=== PATIENT | male | born 1940 | race Caucasian/White ===

== ENCOUNTER 2021-01-18 17:46 | Emergency (ER) | payer MEDICARE, OTHER ==
[~2021-01-18] VITALS: Ht 160 cm; Wt 90.3 kg
[~2021-01-18 17:46] MED LIST: ALBUTEROL2.5 MG/3 M INH; AMOX TR-K CLV1 EAC1 PO; AZITHROMYCIN500 MG PO; BENZONATATE100 MG PO; BUPROPION HCL150 M2 PO; CARBIDOPA-LEVO1 EAC2 PO; CEFPODOXIME PR200 MG PO; FLOMAX0.4 MG PO; GLUCOSAMINE &1 EAC1 PO; IBUPROFEN600 MG PO; IPRAT-ALBUT 0.5-3 ML INH; MAPAP325 MG PO; OXYBUTYNIN CHLOR5 MG PO; OXYCODON-ACETA1 EAC2 PO; ROPINIROLE HCL3 MG PO; ROPINIROLE HCL5 MG PO; TERBINAFINE15 GM TOP; VITAMIN B122500 MCG PO; VITAMIN D31000 UNI1 PO
[2021-01-18] MEDS ORDERED: MONTELUKAST SOD10 MG PO (19:48)
[2021-01-18] MEDS ORDERED: CARBIDOPA-LEVO1 EAC1 PO (19:48)
[2021-01-18] MEDS ORDERED: TAMSULOSIN HCL0.4 MG PO (19:49)
[2021-01-18] MEDS ORDERED: BACLOFEN20 MG PO (19:49)
[2021-01-18] MEDS ORDERED: HYDROCODON-ACE1 EA10 PO (23:23)
== END 2021-01-18 23:36 | disposition home or self-care (01) ==
LOC: ED 17:46
DX: S27.1XXA Traumatic hemothorax, initial encounter (principal); S22.42XA Multiple fractures of ribs, left side, initial encounter for closed fracture; W01.198A Fall on same level from slipping, tripping and stumbling with subsequent striking against other object, initial encounter; G20 Parkinson's disease; J44.9 Chronic obstructive pulmonary disease, unspecified; G47.30 Sleep apnea, unspecified; Z87.891 Personal history of nicotine dependence; Z88.2 Allergy status to sulfonamides; Z79.899 Other long term (current) drug therapy
CPT/HCPCS: 71101; 71260; 74177; 80053; 81001; 85025; 99284-25; Q9967

== ENCOUNTER 2021-06-01 12:34 | Emergency (ER) | payer MEDICARE, OTHER ==
[~2021-06-01] VITALS: Ht 160 cm; Wt 90.3 kg
[~2021-06-01 12:34] MED LIST changes: +BACLOFEN20 MG PO; +CARBIDOPA-LEVO1 EAC1 PO; +HYDROCODON-ACE1 EA10 PO; +MONTELUKAST SOD10 MG PO; +TAMSULOSIN HCL0.4 MG PO
[2021-06-01] MEDS ORDERED: TOPROL XL25 MG PO (16:22)
--- NOTE | 2021-06-01 16:58 | EKG ---
[facility] [address] [place], [place] [address] Signed Atrial fibrillation Abnormal ECG When compared with ECG of 04-JUN-2018 09:29, Atrial fibrillation has replaced Sinus rhythm Confirmed by STEF BLANCO DO ([id number]) on 06/01/2021 4:58:19 PM Electronically Signed By: STEF BLANCO DO 06/01/21 1658 PATIENT NAME: DAKOTA LANGFORD Electrocardiogram DATE OF : 44 PHYSICIAN: STEF BLANCO DO REPORT #: [id number] REPORT IS CONFIDENTIAL AND NOT TO BE RELEASED WITHOUT AUTHORIZATION
== END 2021-06-01 17:08 | disposition home or self-care (01) ==
LOC: ED 12:34
DX: I48.91 Unspecified atrial fibrillation (principal); J44.9 Chronic obstructive pulmonary disease, unspecified; Z87.891 Personal history of nicotine dependence; Z88.2 Allergy status to sulfonamides; Z20.822 Contact with and (suspected) exposure to COVID-19
CPT/HCPCS: 80053; 83735; 84484; 85025; 93005; 93010; 99284-25; C9803; U0003

== ENCOUNTER 2021-11-03 11:17 | Emergency (ER) | payer MEDICARE, OTHER ==
[~2021-11-03] VITALS: Ht 172.7 cm; Wt 90.3 kg
[~2021-11-03 11:17] MED LIST changes: +TOPROL XL25 MG PO
[2021-11-03] MEDS ORDERED: DIGOXIN125 MCG PO (12:13)
[2021-11-03] MEDS ORDERED: AZITHROMYCIN500 MG PO (14:06)
[2021-11-03] MEDS ORDERED: MILLIPRED DP5 MG PO (14:06)
== END 2021-11-03 14:31 | disposition home or self-care (01) ==
LOC: ED 11:17
DX: J44.1 Chronic obstructive pulmonary disease with (acute) exacerbation (principal); G20 Parkinson's disease; G47.30 Sleep apnea, unspecified; Z88.2 Allergy status to sulfonamides; Z79.899 Other long term (current) drug therapy
CPT/HCPCS: 71045; 99285-25; U0003

== ENCOUNTER 2021-11-15 09:39 | Emergency (ER) | payer MEDICARE, OTHER ==
[~2021-11-15] VITALS: Ht 172.7 cm; Wt 90.3 kg
[~2021-11-15 09:39] MED LIST changes: +DIGOXIN125 MCG PO; +MILLIPRED DP5 MG PO
--- OUTSIDE RECORDS SUMMARY | 2021-11-15 09:46 | XMS ---
PreManage Notification: DAKOTA LANGFORD Security Visual Manager Events No recent Security Events currently on file CRITERIA MET - [facility] [place] - 2 Visits in 30 Days CARE PROVIDERS There are no care providers on record at this time. Rivka has no Care Guidelines for this patient. Ravindra VISIT COUNT (12 MO.) 4 [facility] [place] [facility]. TOTAL 4 NOTE: Visits indicate total known visits. ED/C VISIT TRACKING (12 MO.) [facility] COMPLAINT: - LOW B/P 11/03/2021 11:18 [facility] TYPE: Emergency COMPLAINT: - SOB, COUGH, RUNNY/BLOODY NOSE, SORE THROAT, WEAK DIAGNOSES: - Parkinson's disease - Chronic obstructive pulmonary disease with (acute) exacerbation - Other retirement (current) drug therapy - Sleep apnea, unspecified - Allergy status to sulfonamides - COUGH, UNSPECIFIED 2021 12:35 [facility] TYPE: Emergency COMPLAINT: - LOW B/P, DIZZINESS, HEART FLUCUATION DIAGNOSES: - Personal history of nicotine dependence - Chronic obstructive pulmonary disease, unspecified - Allergy status to sulfonamides - Unspecified atrial fibrillation - Dizziness and giddiness 01/18/2021 17:47 [facility] TYPE: Emergency COMPLAINT: - FALL/ BACK PAIN DIAGNOSES: - Allergy status to sulfonamides - Multiple fractures of ribs, left side, initial encounter for closed fracture - Other retirement (current) drug therapy - Personal history of nicotine dependence - Parkinson's disease - Traumatic hemothorax, initial encounter - Traumatic hemothorax, initial encounter - Fall on same level from slipping, tripping and stumbling with subsequent striking against other object, initial encounter - Chronic obstructive pulmonary disease, unspecified - Sleep apnea, unspecified INPATIENT VISIT TRACKING (12 MO.) No inpatient visits to display in this time frame [email or web address]
[2021-11-15] MEDS ORDERED: BACLOFEN20 MG PO (10:05)
--- NOTE | 2021-11-15 22:01 | EKG ---
[facility] [address] [place], [place] [address] Signed Atrial fibrillation Abnormal ECG When compared with ECG of 01-JUN-2021 12:41, No significant change was found Confirmed by STEF BLANCO DO ([id number]) on 11/15/2021 10:01:06 PM Electronically Signed By: STEF BLANCO DO 11/15/212200 PATIENT NAME: DAKOTA LANGFORD Electrocardiogram DATE OF : 44 PHYSICIAN: STEF BLANCO DO REPORT #: [id number] REPORT IS CONFIDENTIAL AND NOT TO BE RELEASED WITHOUT AUTHORIZATION
== END 2021-11-15 13:14 | disposition home or self-care (01) ==
LOC: ED 09:39
DX: R53.1 Weakness (principal); Z20.822 Contact with and (suspected) exposure to COVID-19; J44.9 Chronic obstructive pulmonary disease, unspecified; G20 Parkinson's disease; G47.30 Sleep apnea, unspecified; Z87.891 Personal history of nicotine dependence; Z88.2 Allergy status to sulfonamides; Z79.899 Other long term (current) drug therapy
CPT/HCPCS: 71045; 80053; 80162; 83880; 85025; 93005; 93010; 99285-25; C9803; U0003

== ENCOUNTER 2022-05-19 09:08 | Emergency (ER) | payer MEDICARE, OTHER ==
[~2022-05-19] VITALS: Ht 172.7 cm; Wt 90.3 kg
== END 2022-05-19 13:13 | disposition home or self-care (01) ==
LOC: ED 09:08
DX: R39.198 Other difficulties with micturition (principal); J44.9 Chronic obstructive pulmonary disease, unspecified; G20 Parkinson's disease; G47.30 Sleep apnea, unspecified; Z87.440 Personal history of urinary (tract) infections; Z87.891 Personal history of nicotine dependence; Z88.2 Allergy status to sulfonamides; Z79.899 Other long term (current) drug therapy
CPT/HCPCS: 36415; 80053; 81001; 85025; J7040